=== PATIENT | male | born 2000 ===

== ENCOUNTER 2019-03-15 23:01 | Emergency (ER) | payer OTHER ==
--- NOTE | 2019-03-15 23:34 | ED ---
Substance Abuse/Use - HPI Summary HPI Summary: Patient is a 18 y/o M presenting to [facility] via EMS with chief complaint of altered mental status. He reports that he feels like he is "not there" after having ingested a marijuana-laced brownie for the first time tonight, 03/15/19. He denies alcohol and other substance usage tonight. Some slurred speech is noted. He is alert and oriented x3. Home medications and allergies are reviewed. - History Of Current Complaint Chief Complaint: EDSubstanceAbuse Stated Complaint: DRUG REACTION PER EMS Hx Obtained From: Patient, EMS Ingestion History: Type/Name Of Drug - MARIJUANA Overdose Characteristics: Oral Timing Of Abuse: Intermittent Character: Other - AMS Associated Signs And Symptoms: Altered Mental Status - Allergies/Home Medications Allergies/Adverse Reactions: Allergies Allergy/AdvReac Type Severity Reaction Status Date / Time No Known Allergies Allergy Verified 03/15/19 23:07 Home Medications: Home Medications NK [No Home Medications Reported] 03/15/19 [History Confirmed 03/15/19] PMH/Surg Hx/FS Hx/Imm Hx Sensory History: Denies: Hx Legally Blind, Hx Deafness Opthamlomology History: Denies: Hx Legally Blind EENT History: Denies: Hx Deafness Infectious Disease History: No Infectious Disease History: Denies: Traveled Outside the [place] in Last 30 Days - Family History Known Family History: Negative: Seizure Disorder - Social History Alcohol Use: Occasionally Substance Use Type: Reports: Marijuana Smoking Status (MU): Never Smoked Tobacco Review of Systems Constitutional: Other - positive - marijuana usage Negative: Fever - on vitals, temp is 98.3 F Psychological: Other - positive - AMS All Other Systems Reviewed And Are Negative: Yes Physical Exam - Summary Physical Exam Summary: Appearance: Well-appearing, Well-nourished, lying in bed comfortable Skin: Warm, dry, no obvious rash Eyes: sclera anicteric, no conjunctival pallor ENT: mucous membranes moist Neck: deferred Respiratory: No signs of respiratory distress Cardiovascular: Appears well perfused, pulses are nml Abdomen: deferred Musculoskeletal: Moving all 4 extremities without obvious discomfort Neurological: Alert and oriented x3, speech is somewhat slurred Psychiatric: Drowsy but easily arousable to voice and answers questions appropriately Triage Information Reviewed: Yes Vital Signs On Initial Exam: Initial Vitals Temp Pulse Resp BP Pulse Ox 98.3 F 90 18 147/77 94 03/15/19 23:06 03/15/19 23:06 03/15/19 23:06 03/15/19 23:06 03/15/19 23:06 Vital Signs Reviewed: Yes Procedures - Sedation Patient Received Moderate/Deep Sedation with Procedure: No Diagnostics - Vital Signs Vital Signs Temp Pulse Resp BP Pulse Ox 03/15/19 23:06 98.3 F 90 18 147/77 94 - Laboratory Lab Statement: Any lab studies that have been ordered have been reviewed, and results considered in the medical decision making process. Re-Evaluation - Re-Evaluation First Eval Re-Evaluation Time: 06:07 Change: Improved Comment: Patient has remained stable throughout ED stay. He is alert and oriented x3 and asymptomatic. Patient has a friend who will come pick him up. Patient was discharged to home. Course/Dx - Course Course Of Treatment: Patient has remained stable throughout ED stay. He is alert and oriented x3 and asymptomatic. Patient has a friend who will come pick him up. Patient was discharged to home. On exam, patient is alert and oriented x3, speech is somewhat slurred. He is drowsy but easily arousable to voice and answers questions appropriately. Patient has remained stable throughout ED stay. He is alert and oriented x3 and asymptomatic. Patient has a friend who will come pick him up. Patient was discharged to home and given alcohol and drug counseling follow up. - Diagnoses Provider Diagnoses: Cannabis abuse Discharge ED - Sign-Out/Discharge Documenting (check all that apply): Patient Departure - discharge - Discharge Plan Condition: Good Disposition: HOME Patient Education Materials: Cannabis Abuse (ED) Referrals: [facility] [Outside] Additional Instructions: Edibles can be a problem, as you don't know the dose you are taking and they take time to kick in. I do not recommend them. - Billing Disposition and Condition Condition: GOOD Disposition: Home - Attestation Statements Document Initiated by Breanne: Yes Documenting Scribe: PATSY HENDRICKS Provider For Whom Breanne is Documenting (Include Credential): PURNIMA SWARTZ MD Scribe Attestation: PATSY Borden scribed for PURNIMA SWARTZ MD on 03/16/19 at 1908. Scribe Documentation Reviewed: Yes Provider Attestation: The documentation as recorded by the PATSY shafer accurately reflects the service I personally performed and the decisions made by me, PURNIMA SWARTZ MD Status of Breanne Document: Viewed
[2019-03-16 06:11] VITALS: BP 124/57
== END 2019-03-16 06:11 | disposition home or self-care (01) ==
LOC: ED 23:01
DX: F12.10 Cannabis abuse, uncomplicated (principal)
CPT/HCPCS: 99283

== ENCOUNTER 2019-04-15 03:51 | Emergency (ER) | payer SELFPAY ==
--- NOTE | 2019-04-15 04:12 | ED ---
Neurological HPI - HPI Summary HPI Summary: Patient is a 18 y/o M presenting to the ED for a chief complaint of neurological deficit. Patient states that he had a typical day on 04/14/19, going to the gym, library, eating a burger for dinner, and returning to his house around 21:30. Upon returning to his house, he began to feel paresthesia, numbness, and weakness in the head, face, and jaw. He also notes having a headache, more on the left than right, a feeling that the right side of his face was "heavy," difficulty concentrating, and vision changes described as somewhat blurry. Patient now reports his headache is more on the right than the left. He believes he is having a stroke. He denies any aggravating or alleviating factors. After his symptoms began, the patient contacted his mother who recommended the patient be seen at [facility]. Patient denies a history of migraine headaches. FMHx is significant for blood clots, hypertension, and cardiac disease. - History of Current Complaint Chief Complaint: EDNeurologicalDeficit Stated Complaint: I THINK IM HAVING A STROKE PER PT Hx Obtained From: Patient Onset/Duration: Sudden Onset, Still Present Timing: Sudden Onset Onset Severity: Moderate Current Severity: Moderate Headache Location: Diffuse (Right) Pain Intensity: 0 Pain Scale Used: 0-10 Numeric Character: Numbness/Tingling - Head, face, and jaw, Paresthesia - Head, face, and jaw, Visual Changes Aggravating: Nothing Alleviating: Nothing Associated Signs and Symptoms: Positive: Visual Changes, Headache, Numbness - Head, face, and jaw - Allergy/Home Medications Allergies/Adverse Reactions: Allergies Allergy/AdvReac Type Severity Reaction Status Date / Time apple Allergy Itching Verified 04/15/19 03:59 Tree Nuts Allergy Unknown Verified 04/15/19 03:58 Reaction Details PMH/Surg Hx/FS Hx/Imm Hx Previously Healthy: Yes Endocrine/Hematology History: Denies: Hx Diabetes Cardiovascular History: Denies: Hx Hypercholesterolemia, Hx Hypertension, Hx Pacemaker/ICD Sensory History: Denies: Hx Legally Blind, Hx Deafness Opthamlomology History: Denies: Hx Legally Blind EENT History: Denies: Hx Deafness - Surgical History Surgical History: None Surgery Procedure, Year, and Place: None Infectious Disease History: No Infectious Disease History: Denies: Traveled Outside the [place] in Last 30 Days - Family History Known Family History: Positive: Cardiac Disease, Hypertension, Other - Blood clots Negative: Seizure Disorder - Social History Occupation: Student Lives: Alone Alcohol Use: Occasionally Hx Substance Use: Yes Substance Use Type: Reports: Marijuana Hx Tobacco Use: No Smoking Status (MU): Never Smoked Tobacco Review of Systems Positive: Other - Positive visual changes described as blurry Neurological: Other - Positive difficulty concentrating and "heavy" sensation on the right side of the face Positive: Headache, Weakness - Head, face, and jaw, Paresthesia - Head, face, and jaw, Numbness - Head, face, and jaw All Other Systems Reviewed And Are Negative: Yes Physical Exam - Summary Physical Exam Summary: Appearance: Well-appearing, Well-nourished, lying in bed comfortably Skin: Warm, dry, no obvious rash Eyes: sclera anicteric, no conjunctival pallor ENT: mucous membranes moist, pharynx appears normal Neck: Supple, nontender Respiratory: Clear to auscultation, no signs of respiratory distress Cardiovascular: Normal S1, S2. No murmurs. Normal distal pulses in tibial and radial bilaterally. Abdomen: Soft, nontender, normal active bowel sounds present Musculoskeletal: Normal, Strength/ROM Intact, Motor function in all 4 extremities is normal and symmetric. There is no rigidity or tremor noted. Neurological: A&Ox3, awake and alert, mentation is normal, speech is fluent and appropriate, Level of consciousness nml. The patient is alert and oriented. Cranial nerves are grossly intact. Gaze is conjugate and without nystagmus. Peripheral vision is intact to confrontation. There are no gross sensory abnormalities to light touch. There is no truncal or fine motor ataxia. Gait is normal. Psychiatric: affect is normal, does not appear anxious or depressed Triage Information Reviewed: Yes Vital Signs On Initial Exam: Initial Vitals Temp Pulse Resp BP Pulse Ox 98.7 F 75 15 158/101 96 04/15/19 03:53 04/15/19 03:53 04/15/19 03:53 04/15/19 03:53 04/15/19 03:53 Vital Signs Reviewed: Yes Procedures - Sedation Patient Received Moderate/Deep Sedation with Procedure: No Diagnostics - Vital Signs Vital Signs Temp Pulse Resp BP Pulse Ox 04/15/19 03:53 98.7 F 75 15 158/101 96 - Laboratory Lab Statement: Any lab studies that have been ordered have been reviewed, and results considered in the medical decision making process. Course/Dx - Course Course Of Treatment: Patient is a 18 y/o M presenting to the ED for a chief complaint of neurological deficit. Patient states that he had a typical day on 04/14/19, going to the gym, library, eating a burger for dinner, and returning to his house around 21:30. Upon returning to his house, he began to feel paresthesia, numbness, and weakness in the head, face, and jaw. He also notes having a headache, more on the left than right, a feeling that the right side of his face was "heavy," difficulty concentrating, and vision changes described as somewhat blurry. Patient now reports his headache is more on the right than the left. He believes he is having a stroke. He denies any aggravating or alleviating factors. After his symptoms began, the patient contacted his mother who recommended the patient be seen at [facility]. Patient denies a history of migraine headaches. FMHx is significant for blood clots, hypertension, and cardiac disease. On exam, unremarkable, including an unremarkable neurological exam. Patient will be discharged with a diagnosis of migraine headaches. Follow up with PCP as needed. - Diagnoses Provider Diagnoses: Migraine headache Discharge ED - Sign-Out/Discharge Documenting (check all that apply): Patient Departure - Discharge - Discharge Plan Condition: Good Disposition: HOME Patient Education Materials: Migraine Headache (ED) Referrals: [facility] [Z.BUSINESS, APPLICATION, OTHER] - If Needed - Attestation Statements Document Initiated by Leonarde: Yes Documenting Scribe: Prisca Tolentino Provider For Whom Breanne is Documenting (Include Credential): Cheko Arias MD Scribe Attestation: Prisca Borden, scribed for Cheko Arias MD on 04/15/19 at 0417. Status of Scribe Document: Ready
[2019-04-15 04:29] VITALS: BP 147/74
== END 2019-04-15 04:20 | disposition home or self-care (01) ==
LOC: ED 03:51
DX: G43.909 Migraine, unspecified, not intractable, without status migrainosus (principal); Z91.018 Allergy to other foods
CPT/HCPCS: 99282

== ENCOUNTER 2019-04-15 17:34 | Emergency (ER) | payer OTHER ==
--- NOTE | 2019-04-15 18:12 | ED ---
Headache - HPI Summary HPI Summary: Patient complains of persistent headache, weakness, lightheadedness, blurry vision, difficulty focusing and episodes of imbalance, 2 days. Patient was seen here at 3 AM for same symptoms diagnosed with migraine and discharge. Patient states symptoms are worsening. Denies trauma, room spinning, fever, cough, sore throat, CP, SOB, N/C/D, abdominal pain, change in urine, change in BM. Denies prior history of headaches. Medical history is asthma. His EtOH or recreational drug use in the past 4 days. - History Of Current Complaint Chief Complaint: EDHeadache Stated Complaint: MIGRANE PER PT Time Seen by Provider: 04/15/19 18:07 Hx Obtained From: Patient Onset/Duration: Gradual Onset, Started days ago Initially Headache Was: Moderate Currently Pain Is: Moderate Timing: Constant Character: Pressure Location of Headache: Parietal Aggravating Factor: Bright Lights Allevating Factors: Rest Associated Signs And Symptoms: Visual Changes - Allergies/Home Medications Allergies/Adverse Reactions: Allergies Allergy/AdvReac Type Severity Reaction Status Date / Time apple Allergy Itching Verified 04/15/19 17:41 Tree Nuts Allergy Unknown Verified 04/15/19 17:41 Reaction Details PMH/Surg Hx/FS Hx/Imm Hx Endocrine/Hematology History: Denies: Hx Diabetes Cardiovascular History: Denies: Hx Hypercholesterolemia, Hx Hypertension, Hx Pacemaker/ICD Respiratory History: Denies: Hx Chronic Obstructive Pulmonary Disease (COPD) History: Denies: Hx Dialysis Sensory History: Denies: Hx Legally Blind, Hx Deafness Opthamlomology History: Denies: Hx Legally Blind EENT History: Denies: Hx Deafness - Surgical History Surgery Procedure, Year, and Place: None Infectious Disease History: No Infectious Disease History: Denies: Traveled Outside the [place] in Last 30 Days - Family History Known Family History: Positive: Cardiac Disease, Hypertension, Other - Blood clots Negative: Seizure Disorder - Social History Alcohol Use: Occasionally Hx Substance Use: Yes Substance Use Type: Reports: Marijuana Hx Tobacco Use: No Smoking Status (MU): Never Smoked Tobacco Review of Systems Constitutional: Negative Eyes: Negative ENT: Negative Cardiovascular: Negative Respiratory: Negative Gastrointestinal: Negative Genitourinary: Negative Musculoskeletal: Negative Skin: Negative Positive: Headache, Paresthesia Psychological: Normal All Other Systems Reviewed And Are Negative: Yes Physical Exam - Summary Physical Exam Summary: Neuro exam normal. Normal gait. Triage Information Reviewed: Yes Vital Signs On Initial Exam: Initial Vitals Temp Pulse Resp BP Pulse Ox 98.1 F 78 16 122/68 99 04/15/19 17:36 04/15/19 17:36 04/15/19 17:36 04/15/19 17:36 04/15/19 17:36 Vital Signs Reviewed: Yes Appearance: Positive: Well-Appearing Skin: Positive: Warm Head/Face: Positive: Normal Head/Face Inspection Eyes: Positive: Normal Neck: Positive: Supple Respiratory/Lung Sounds: Positive: Clear to Auscultation Cardiovascular: Positive: Normal Abdomen Description: Positive: Nontender Musculoskeletal: Positive: Normal Neurological: Positive: Normal Psychiatric: Positive: Normal AVPU Assessment: Alert - Howie Coma Scale Best Eye Response: 4 - Spontaneous Best Motor Response: 6 - Obeys Commands Best Verbal Response: 5 - Oriented Coma Scale Total: 15 Procedures - Sedation Patient Received Moderate/Deep Sedation with Procedure: No Diagnostics - Vital Signs Vital Signs Temp Pulse Resp BP Pulse Ox 04/15/19 17:36 98.1 F 78 16 122/68 99 - Laboratory Result Diagrams: 04/15/19 18:22 04/15/19 18:22 Lab Statement: Any lab studies that have been ordered have been reviewed, and results considered in the medical decision making process. Headache Course/Dx - Course Course Of Treatment: Patient complains of persistent headache, weakness, lightheadedness, blurry vision, difficulty focusing and episodes of imbalance, 2 days. Patient was seen here at 3 AM for same symptoms diagnosed with migraine and discharge. Patient states symptoms are worsening. Denies trauma, room spinning, fever, cough, sore throat, CP, SOB, N/C/D, abdominal pain, change in urine, change in BM. Denies prior history of headaches. Medical history is asthma. His EtOH or recreational drug use in the past 4 days. Vital signs within normal limits. Labs unremarkable. CT brain negative. - Diagnoses Provider Diagnoses: Migraine Discharge ED - Sign-Out/Discharge Documenting (check all that apply): Patient Departure - Discharge Plan Condition: Stable Disposition: HOME Patient Education Materials: Migraine Headache (ED) Referrals: No Primary Care Phys,NOPCP [Primary Care Provider] - [facility] [Outside] Additional Instructions: Drink any fluids to maintain hydration. Alternate ibuprofen 600 mg with Tylenol 650 mg every 3 hours for headache. Rest. Follow-up with primary care for further evaluation. Return to the ED for any new or worsening symptoms. - Billing Disposition and Condition Condition: STABLE Disposition: Home
[2019-04-15] MEDS ORDERED: NS 0.9% 1000 ML** 1,000 ML IV ONE (18:27)
[2019-04-15 18:28] LABS: ABS Basophils 0.1 10^3/ul (0-0.2); ABS Eosinophils 0.1 10^3/ul (0-0.6); ABS Lymphocytes 1.7 10^3/ul (1.0-4.8); ABS Monocytes 0.8 10^3/ul (0-0.8); ABS Neutrophils 5.6 10^3/ul (1.5-7.7); Eosinophil % 0.8 %; Hematocrit 48 % (42-52); Hemoglobin 16.5 g/dL (14.0-18.0); Lymphocyte % 20.4 %; Mean Corpuscular HGB Conc 34 g/dL (31-36); Mean Corpuscular Hemoglobin 32 pg (27-31); Mean Corpuscular Volume 94 fL (80-94); Mean Platelet Volume 8.4 fL (7.4-10.4); Platelet Count 218 10^3/uL (150-450); Red Blood Count 5.11 10^6 /uL (4.18-5.48); Red Cell Distribution Width 12 % (10-15); White Blood Count 8.1 10^3/uL (3.5-10.8)
[2019-04-15 18:45] LABS: Albumin 4.4 g/dL (3.2-5.2); Anion Gap 5 mmol/L (2-11); BUN/Creatinine Ratio 8.7 (8-20); Blood Urea Nitrogen 11 mg/dL (6-24); CO2 Carbon Dioxide 30 mmol/L (22-32); Calcium 9.5 mg/dL (8.6-10.3); Chloride 103 mmol/L (101-111); EGFR African American 88.4 (>60); EGFR Non-African American 73.1 (>60); Globulin 3.1 g/dL (2-4); Glucose 97 mg/dL (70-100); Potassium 3.6 mmol/L (3.5-5.0); Sodium 138 mmol/L (135-145); Total Protein 7.5 g/dL (6.4-8.9)
[2019-04-15 18:46] LABS: ALT 21 U/L (7-52); AST 26 U/L (13-39); Albumin/Globulin Ratio 1.4 (1-3); Alkaline Phosphatase 98 U/L (34-104); C Reactive Protein < 1.00 mg/L (<8.01)
[2019-04-15] MEDS ORDERED: Acetaminophen TAB* 325 MG PO ONE (19:44)
[2019-04-15] MEDS ORDERED: Metoclopramide IV* 5 MG/ML 2 ML VIAL IV ONE (19:44)
[2019-04-15] MEDS ORDERED: diPHENhydraMINE IV* 50 MG/ML 1 ml VIAL (BENADRYL) IV ONE (19:44)
[2019-04-15 20:30] VITALS: BP 141/79
== END 2019-04-15 20:28 | disposition home or self-care (01) ==
LOC: ED 17:34
DX: G43.909 Migraine, unspecified, not intractable, without status migrainosus (principal); J45.909 Unspecified asthma, uncomplicated; R53.1 Weakness; R42 Dizziness and giddiness; H53.8 Other visual disturbances
CPT/HCPCS: 36415; 70450; 80053; 85025; 86140; 96361; 96374; 96375; 99283; A9270-GY; J1200; J2765